=== PATIENT | male | born 1980 | race Two or more races ===

== ENCOUNTER 2016-11-18 12:35 | Emergency (ER) | payer MEDICAID ==
[~2016-11-18] VITALS: Ht 185.4 cm; Wt 122.5 kg
[2016-11-18 14:38] VITALS: BP 138/90
== END 2016-11-18 15:32 | disposition home or self-care (01) ==
LOC: ER 12:35
DX: S80.12XA Contusion of left lower leg, initial encounter (principal); F12.10 Cannabis abuse, uncomplicated; W22.8XXA Striking against or struck by other objects, initial encounter; Y93.89 Activity, other specified; Y92.89 Other specified places as the place of occurrence of the external cause; Y99.8 Other external cause status
CPT/HCPCS: 73562; 73590; 93971

== ENCOUNTER 2018-07-18 03:03 | Emergency (ER) | payer MEDICAID ==
[~2018-07-18] VITALS: Ht 185.4 cm; Wt 115.7 kg
[2018-07-18 06:50] VITALS: BP 147/96
[2018-07-18] MEDS ORDERED: IBUPROFEN 800 MG TAB PO ONE (07:45)
== END 2018-07-18 07:56 | disposition home or self-care (01) ==
LOC: ER 03:03
DX: S83.92XA Sprain of unspecified site of left knee, initial encounter (principal); F12.10 Cannabis abuse, uncomplicated; W01.0XXA Fall on same level from slipping, tripping and stumbling without subsequent striking against object, initial encounter; Y93.89 Activity, other specified; Y99.8 Other external cause status; Y92.89 Other specified places as the place of occurrence of the external cause
CPT/HCPCS: 73562

== ENCOUNTER 2020-10-12 05:44 | Emergency (ER) | payer MEDICAID ==
[~2020-10-12] VITALS: Ht 185.4 cm; Wt 129.3 kg
[2020-10-12 06:29] VITALS: BP 145/100
[2020-10-12] MEDS ORDERED: IBUPROFEN 800 MG TAB PO ONE (06:45)
== END 2020-10-12 07:12 | disposition home or self-care (01) ==
LOC: ER 05:44
DX: S93.401A Sprain of unspecified ligament of right ankle, initial encounter (principal); W18.39XA Other fall on same level, initial encounter; Y93.89 Activity, other specified; Y92.89 Other specified places as the place of occurrence of the external cause; Y99.8 Other external cause status
CPT/HCPCS: 73610

== ENCOUNTER 2021-09-05 05:24 | Emergency (ER) | payer MEDICAID ==
[~2021-09-05] VITALS: Ht 185.4 cm; Wt 127.0 kg
[2021-09-05 07:34] LABS: Basophils # (auto) 0.1 10 ^3/uL (0-0.2); Basophils % (auto) 0.7 % (0.0-2.0); Eosinophils # (auto) 0.2 10 ^3/uL (0-0.8); Eosinophils % (auto) 1.4 % (0.0-7.0); Hematocrit 51.3 % (41.0-53.0); Hemoglobin 17.4 g/dL (13.5-17.5); Lymphocytes # (auto) 3.3 10 ^3/uL (0.4-5.4); Lymphocytes % (auto) 24.1 % (10.0-50.0); Mean Corpuscular Hemoglobin 30.1 pg (28.0-32.0); Mean Corpuscular Hgb Conc. 33.9 g/dL (32.0-36.0); Mean Corpuscular Volume 88.7 fL (80.0-100.0); Monocytes % (auto) 6.9 % (0.0-12.0); Neutrophils # (auto) 9.2 10 ^3/uL (1.6-8.6); Neutrophils % (auto) 66.9 % (37.0-80.0); Nucleated Red Blood Cells % 0.1 %; Red Blood Cells 5.78 10^6/uL (4.5-5.90); Red Cell Distribution Width 13.1 % (11.8-14.3); White Blood Cell 13.8 10^3/uL (4.4-10.8)
[2021-09-05 07:57] LABS: Albumin 3.8 g/dL (3.4-5.0); BUN/Creatinine Ratio 11.8; Calcium 9.6 mg/dL (8.5-10.1); Magnesium 2.6 mg/dL (1.6-2.6)
[2021-09-05 07:59] LABS: Bilirubin, Total 0.4 mg/dL (0.2-1.0); Total Protein 7.8 g/dL (6.4-8.2)
[2021-09-05 09:37] VITALS: BP 125/90
[2021-09-05] MEDS ORDERED: ATEN-60 PO (12:35)
[2021-09-05] MEDS ORDERED: LEVO25TA6 PO (12:35)
== END 2021-09-05 12:50 | disposition home or self-care (01) ==
LOC: ER 05:24
DX: R00.2 Palpitations (principal); E03.9 Hypothyroidism, unspecified; I10 Essential (primary) hypertension
CPT/HCPCS: 36415; 71045; 80053; 83735; 84443; 84484; 85025; 85379; 93005